=== PATIENT | male | born 1985 | race Two or more races ===

== ENCOUNTER 2018-02-17 23:00 | Emergency (ER) | payer OTHER ==
[~2018-02-17] VITALS: Ht 185.4 cm; Wt 88.0 kg
--- NOTE | 2018-02-17 23:20 | NUR ---
PATIENT WAS MSE BY DR MATA IN ROOM 02B.
--- NOTE | 2018-02-17 23:31 | NUR ---
Patient discharged to home in stable conditon. Written and verbal after care instructions given. Patient verbalizes understanding of instructions.
== END 2018-02-17 23:36 | disposition home or self-care (01) ==
LOC: ER 23:07
DX: J06.9 Acute upper respiratory infection, unspecified (principal); J45.909 Unspecified asthma, uncomplicated
CPT/HCPCS: A4663